=== PATIENT | male | born 1955 | race African-American/Black ===

== ENCOUNTER 2023-07-30 15:25 | Inpatient (IN) | payer MEDICARE, OTHER ==
[~2023-07-30] VITALS: Ht 175.3 cm; Wt 67.1 kg
[2023-07-30] MEDS ORDERED: MULT-213 PO (15:40)
[2023-07-30] MEDS ORDERED: [UNRECOGNIZED DRUG - CODE] PO (15:40)
[2023-07-30] MEDS ORDERED: RISP3TAB61 PO (15:40)
[2023-07-30] MEDS ORDERED: MAGN400O6 PO (15:40)
[2023-07-30] MEDS ORDERED: ASPI81TA31 PO (15:40)
[2023-07-30] MEDS ORDERED: FLUT1DIS27 IH (15:40)
[2023-07-30] MEDS ORDERED: POTA10CA43 PO (15:40)
[2023-07-30] MEDS ORDERED: BISA10SU61 RC (15:40)
[2023-07-30] MEDS ORDERED: ACET325C7 PO (15:40)
[2023-07-30] MEDS ORDERED: DIVA125C2 PO (15:40)
[2023-07-30 17:24] LABS: BASOPHILS # (AUTO) 0.1 K/UL (0.0-0.2); BASOPHILS % (AUTO) 0.9 % (0.0-2.0); DIFFERENTIAL COMMENT 0; EOSINOPHILS # (AUTO) 0.2 K/uL (0.0-0.7); EOSINOPHILS % (AUTO) 2.7 % (0.0-7.0); HEMATOCRIT 49.6 % (36.7-47.1); HEMOGLOBIN 16.2 g/dL (12.5-16.3); LYMPHOCYTES # (AUTO) 1.8 K/uL (0.8-4.8); LYMPHOCYTES % (AUTO) 26.2 % (20.5-51.5); MEAN CORPUSCULAR HEMOGLOBIN 32.3 uug (23.8-33.4); MEAN CORPUSCULAR HGB CONC 33 g/dL (32.5-36.3); MEAN CORPUSCULAR VOLUME 98.7 fL (73.0-96.2); MONOCYTES # (AUTO) 0.6 K/uL (0.1-1.30); MONOCYTES % (AUTO) 8.9 % (0.0-11.0); NEUTROPHILS # (AUTO) 4.1 K/uL (1.8-8.9); NEUTROPHILS % (AUTO) 61.3 % (38.5-71.5); PLATELET COUNT (AUTO) 177 K/uL (152-348); RED BLOOD CELL COUNT(AUTO) 5.03 MIL/uL (4.06-5.63); WHITE BLOOD COUNT (AUTO) 6.8 K/uL (3.6-10.2)
[2023-07-30 17:46] LABS: CALCIUM 9.3 mg/dL (8.5-10.1); CARBON DIOXIDE 34 mmol/L (21-32); CHLORIDE 102 mmol/L (98-107); CREATININE 0.8 mg/dL (0.6-1.3); GLUCOSE 88 mg/dL (74-106); POTASSIUM 4.8 mmol/L (3.5-5.1); SODIUM SERUM 138 mmol/L (136-145); UREA NITROGEN, BLOOD 17 mg/dL (7-18)
[2023-07-30 17:52] LABS: ALANINE AMINOTRANSFERASE 22 U/L (16-63); ALBUMIN 3.7 g/dL (3.4-5.0); ALKALINE PHOSPHATASE 69 U/L (50-136); ASPARTATE AMINOTRANSFERASE 18 U/L (15-37); BILIRUBIN,TOTAL 0.4 mg/dL (0.2-1.0); ETHANOL < 3 MG/DL (0-10); TOTAL PROTEIN, SERUM 7.6 g/dL (6.4-8.2)
[2023-07-30 18:00] LABS: ACETAMINOPHEN < 2.0 ug/mL (10-30)
[2023-07-30 18:12] LABS: *BILIRUBIN,URIN NEGATIVE (NEGATIVE); *BLOOD, URINE NEGATIVE (NEGATIVE); *CLARITY,URINE CLEAR (CLEAR); *COLOR,URINE YELLOW (YELLOW); *KETONES,URINE NEGATIVE (NEGATIVE); *PROTEIN,URINE NEGATIVE (NEGATIVE); *UROBILINOGEN,URINE 0.2 E.U./dl (NORMAL); LEUKOCYTE ESTERASE ,URINE NEGATIVE (NEGATIVE); NITRITE, URINE NEGATIVE (NEGATIVE); UGLUCOSE NEGATIVE (NEGATIVE)
[2023-07-30 18:42] LABS: *AMPHETAMINE, URINE NEGATIVE (NEGATIVE); *BARBITURATE, URINE NEGATIVE (NEGATIVE); *BENZODIAZEPINE, URINE NEGATIVE (NEGATIVE); *CANNABINOID, URINE NEGATIVE (NEGATIVE); *COCCAINE, URINE NEGATIVE (NEGATIVE); *OPIATE, URINE NEGATIVE (NEGATIVE); *PHENCYCLIDINE SCREEN,URINE NEGATIVE (NEGATIVE); FENTANYL, URINE NEGATIVE (NEGATIVE)
[2023-07-30] MEDS ORDERED: MAGNESIUM HYDROXIDE 30 ML LIQUID UDC PO PRN (22:45)
[2023-07-30] MEDS ORDERED: MAG HYDROX/AL HYDROX/SIMETH 30 ML LIQUID UDC PO PRN (22:45)
[2023-07-30] MEDS ORDERED: BLOOD SUGAR DIAGNOSTIC 1 EACH STRIP VI ONE (22:45)
[2023-07-30] MEDS ORDERED: ACETAMINOPHEN 325 MG TABLET PO PRN (22:45)
[2023-07-30] MEDS ORDERED: TEMAZEPAM 7.5 MG CAPSULE PO PRN (22:45)
[2023-07-30] MEDS ORDERED: LORAZEPAM 1 MG TABLET PO PRN (22:45)
[2023-07-31 07:30] VITALS: BP 109/67; TEMP 97.9
[2023-07-31] MEDS: NICOTINE 7 MG/24HR PATCH TD SCH (08:57)
[2023-07-31] MEDS: risperiDONE 1 MG TABLET PO SCH ×2 (08:57→16:43)
[2023-07-31] MEDS: DIVALPROEX SPRINKLE 125 MG CAP.SPRINK PO SCH ×3 (08:57→16:43)
[2023-07-31] MEDS ORDERED: risperiDONE 0.5 MG TABLET PO SCH (09:00)
[2023-07-31] MEDS ORDERED: MAGNESIUM HYDROXIDE 30 ML LIQUID UDC PO PRN (13:15)
[2023-07-31] MEDS ORDERED: Medication Not On Formulary EA (Acetaminophen (Tylenol) 650 MG) PO SCH (13:15)
[2023-07-31] MEDS ORDERED: BISACODYL 10 MG SUPP.RECT RC PRN (13:15)
[2023-07-31 16:00] VITALS: BP 110/72; TEMP 98; O2SAT 95
[2023-07-31] MEDS ORDERED: INSULIN REGULAR, HUMAN 300 UNITS/3 ML VIAL SQ PRN (16:15)
[2023-07-31] MEDS ORDERED: INSULIN REGULAR, HUMAN 300 UNIT/3 ML VIAL SQ PRN (16:15)
[2023-07-31] MEDS ORDERED: DEXTROSE 50% 50 ML DISP.SYRIN IV PRN (16:17)
[2023-07-31] MEDS: BLOOD SUGAR DIAGNOSTIC 1 EACH STRIP VI SCH ×2 (16:30→20:36)
[2023-07-31] MEDS ORDERED: FLUTICASONE/SALMETEROL 100/50 1 INH DISK.W.DEV IH SCH (21:00)
[2023-07-31 21:02] VITALS: BP 104/62; TEMP 98.4; O2SAT 90
[2023-08-01] MEDS: BLOOD SUGAR DIAGNOSTIC 1 EACH STRIP VI SCH ×4 (06:24→20:40)
[2023-08-01] MEDS: ASPIRIN 81 MG TAB.CHEW PO SCH (08:54)
[2023-08-01] MEDS: MULTIVIT, IRON, MIN NO. 8, FA TABLET PO SCH (08:55)
[2023-08-01] MEDS: risperiDONE 1 MG TABLET PO SCH ×2 (08:55→16:26)
[2023-08-01] MEDS: POTASSIUM CHLORIDE 10 MEQ TAB.PRT.SR PO SCH (08:55)
[2023-08-01] MEDS: DIVALPROEX SPRINKLE 125 MG CAP.SPRINK PO SCH ×3 (08:55→16:26)
[2023-08-01] MEDS: NICOTINE 7 MG/24HR PATCH TD SCH (08:56)
[2023-08-01] MEDS: GLUCERNA SHAKE 237 ML CAN PO SCH (08:56)
[2023-08-01] MEDS ORDERED: Medication Not On Formulary EA (Multivitamins W-Minerals (Multivitamin With Minerals) 1 PO SCH (09:00)
[2023-08-01] MEDS ORDERED: NIACIN 250 MG PO SCH (09:00)
[2023-08-01] MEDS: FLUTICASONE/VILANTEROL 1 EACH BLST.W.DEV INH SCH (09:00)
[2023-08-01 16:11] VITALS: BP 106/76; TEMP 98.3; O2SAT 93
[2023-08-01 19:55] VITALS: BP 112/75; TEMP 98; O2SAT 94
[2023-08-02] MEDS: BLOOD SUGAR DIAGNOSTIC 1 EACH STRIP VI SCH ×4 (06:42→21:00)
[2023-08-02] MEDS ORDERED: OLANZAPINE 10 MG VIAL IM ONE (07:30)
[2023-08-02 07:54] VITALS: BP 130/60; TEMP 98.4; O2SAT 99
[2023-08-02] MEDS: GLUCERNA SHAKE 237 ML CAN PO SCH (09:00)
[2023-08-02] MEDS: FLUTICASONE/VILANTEROL 1 EACH BLST.W.DEV INH SCH (09:00)
[2023-08-02] MEDS: MULTIVIT, IRON, MIN NO. 8, FA TABLET PO SCH (09:00)
[2023-08-02] MEDS: ASPIRIN 81 MG TAB.CHEW PO SCH (09:00)
[2023-08-02] MEDS: risperiDONE 1 MG TABLET PO SCH ×2 (09:00→17:00)
[2023-08-02] MEDS: NICOTINE 7 MG/24HR PATCH TD SCH (09:00)
[2023-08-02] MEDS: POTASSIUM CHLORIDE 10 MEQ TAB.PRT.SR PO SCH (09:00)
[2023-08-02] MEDS: DIVALPROEX SPRINKLE 125 MG CAP.SPRINK PO SCH ×3 (09:00→17:00)
[2023-08-02 16:21] VITALS: BP 101/69; TEMP 98.1; O2SAT 98
[2023-08-03 06:00] VITALS: BP 100/65; TEMP 99.3; O2SAT 92
[2023-08-03] MEDS: BLOOD SUGAR DIAGNOSTIC 1 EACH STRIP VI SCH ×4 (07:30→21:00)
[2023-08-03] MEDS: POTASSIUM CHLORIDE 10 MEQ TAB.PRT.SR PO SCH (08:02)
[2023-08-03] MEDS: MULTIVIT, IRON, MIN NO. 8, FA TABLET PO SCH (08:02)
[2023-08-03] MEDS: ASPIRIN 81 MG TAB.CHEW PO SCH (08:02)
[2023-08-03] MEDS: FLUTICASONE/VILANTEROL 1 EACH BLST.W.DEV INH SCH (08:02)
[2023-08-03] MEDS: NICOTINE 7 MG/24HR PATCH TD SCH (08:03)
[2023-08-03 08:13] VITALS: BP 104/77; TEMP 98.2; O2SAT 98
[2023-08-03] MEDS: DIVALPROEX SPRINKLE 125 MG CAP.SPRINK PO SCH ×3 (08:51→17:41)
[2023-08-03] MEDS: risperiDONE 1 MG TABLET PO SCH ×2 (08:52→10:00)
[2023-08-03] MEDS: GLUCERNA SHAKE 237 ML CAN PO SCH (08:52)
[2023-08-03 16:23] VITALS: BP 105/72; TEMP 98.1; O2SAT 98
[2023-08-04] MEDS: BLOOD SUGAR DIAGNOSTIC 1 EACH STRIP VI SCH ×4 (07:30→20:41)
[2023-08-04 08:00] VITALS: BP 123/86; TEMP 97.5; O2SAT 96
[2023-08-04] MEDS: risperiDONE 1 MG TABLET PO SCH ×2 (08:39→17:30)
[2023-08-04] MEDS: FLUTICASONE/VILANTEROL 1 EACH BLST.W.DEV INH SCH (09:00)
[2023-08-04] MEDS: ASPIRIN 81 MG TAB.CHEW PO SCH (09:00)
[2023-08-04] MEDS: GLUCERNA SHAKE 237 ML CAN PO SCH (09:00)
[2023-08-04] MEDS: POTASSIUM CHLORIDE 10 MEQ TAB.PRT.SR PO SCH (09:00)
[2023-08-04] MEDS: DIVALPROEX SPRINKLE 125 MG CAP.SPRINK PO SCH ×3 (09:00→17:00)
[2023-08-04 16:00] VITALS: BP 120/78; TEMP 97.7; O2SAT 93
[2023-08-05] MEDS: BLOOD SUGAR DIAGNOSTIC 1 EACH STRIP VI SCH ×4 (07:00→20:47)
[2023-08-05] MEDS: risperiDONE 1 MG TABLET PO SCH ×3 (08:45→16:35)
[2023-08-05 08:54] VITALS: BP 99/61; TEMP 98.2; O2SAT 98
[2023-08-05] MEDS: GLUCERNA SHAKE 237 ML CAN PO SCH (08:54)
[2023-08-05] MEDS: DIVALPROEX ER 500 MG TAB.SR.24H PO SCH ×2 (08:59→20:46)
[2023-08-05] MEDS: POTASSIUM CHLORIDE 10 MEQ TAB.PRT.SR PO SCH (09:00)
[2023-08-05] MEDS: FLUTICASONE/VILANTEROL 1 EACH BLST.W.DEV INH SCH (09:00)
[2023-08-05] MEDS: ASPIRIN 81 MG TAB.CHEW PO SCH (09:00)
[2023-08-05 15:39] VITALS: BP 100/66; TEMP 98; O2SAT 99
[2023-08-05 20:00] VITALS: BP 106/68; TEMP 98; O2SAT 90
[2023-08-06] MEDS: BLOOD SUGAR DIAGNOSTIC 1 EACH STRIP VI SCH ×4 (06:53→20:12)
[2023-08-06 08:00] VITALS: BP 140/89; TEMP 98.2; O2SAT 96
[2023-08-06] MEDS ORDERED: HALOPERIDOL LACTATE 5 MG/1 ML VIAL IM ONE (08:00)
[2023-08-06] MEDS ORDERED: diphenhydrAMINE 50 MG/1 ML VIAL IM ONE (08:00)
[2023-08-06] MEDS: GLUCERNA SHAKE 237 ML CAN PO SCH (09:00)
[2023-08-06] MEDS: ASPIRIN 81 MG TAB.CHEW PO SCH (09:00)
[2023-08-06] MEDS: risperiDONE 1 MG TABLET PO SCH ×2 (09:00→16:19)
[2023-08-06] MEDS: DIVALPROEX ER 500 MG TAB.SR.24H PO SCH ×2 (09:00→20:12)
[2023-08-06] MEDS: POTASSIUM CHLORIDE 10 MEQ TAB.PRT.SR PO SCH (09:00)
[2023-08-06] MEDS: FLUTICASONE/VILANTEROL 1 EACH BLST.W.DEV INH SCH (09:00)
[2023-08-06 15:33] VITALS: BP 130/91; TEMP 98.2; O2SAT 96
[2023-08-06 20:14] VITALS: BP 142/82; TEMP 98.1; O2SAT 95
[2023-08-07] MEDS: BLOOD SUGAR DIAGNOSTIC 1 EACH STRIP VI SCH ×4 (06:30→20:27)
[2023-08-07 08:07] VITALS: BP 138/90; TEMP 98.4; O2SAT 99
[2023-08-07] MEDS: ASPIRIN 81 MG TAB.CHEW PO SCH (08:29)
[2023-08-07] MEDS: FLUTICASONE/VILANTEROL 1 EACH BLST.W.DEV INH SCH (08:29)
[2023-08-07] MEDS: DIVALPROEX ER 500 MG TAB.SR.24H PO SCH (08:30)
[2023-08-07] MEDS: POTASSIUM CHLORIDE 10 MEQ TAB.PRT.SR PO SCH (08:31)
[2023-08-07] MEDS: risperiDONE 1 MG TABLET PO SCH (08:31)
[2023-08-07] MEDS: GLUCERNA SHAKE 237 ML CAN PO SCH (08:31)
[2023-08-07] MEDS ORDERED: HALOPERIDOL LACTATE 5 MG/1 ML VIAL IM PRN (14:30)
[2023-08-07 15:27] VITALS: BP 143/94; TEMP 98; O2SAT 94
[2023-08-07] MEDS: DIVALPROEX SPRINKLE 125 MG CAP.SPRINK PO SCH (17:56)
[2023-08-07] MEDS: BENZTROPINE MESYLATE 1 MG TABLET PO SCH (17:56)
[2023-08-07] MEDS: HALOPERIDOL 5 MG TABLET PO SCH (17:57)
[2023-08-07 20:11] VITALS: BP 122/84; TEMP 97.9; O2SAT 95
[2023-08-08] MEDS: BLOOD SUGAR DIAGNOSTIC 1 EACH STRIP VI SCH ×4 (06:57→21:00)
[2023-08-08 08:34] VITALS: BP 111/75; TEMP 98.2; O2SAT 99
[2023-08-08] MEDS: ASPIRIN 81 MG TAB.CHEW PO SCH (08:43)
[2023-08-08] MEDS: DIVALPROEX SPRINKLE 125 MG CAP.SPRINK PO SCH ×2 (08:43→16:49)
[2023-08-08] MEDS: HALOPERIDOL 5 MG TABLET PO SCH ×3 (08:43→16:50)
[2023-08-08] MEDS: BENZTROPINE MESYLATE 1 MG TABLET PO SCH ×2 (08:43→16:49)
[2023-08-08] MEDS: POTASSIUM CHLORIDE 20 MEQ POWDER PACKET PO SCH (08:44)
[2023-08-08] MEDS: GLUCERNA SHAKE 237 ML CAN PO SCH (08:44)
[2023-08-08] MEDS: FLUTICASONE/VILANTEROL 1 EACH BLST.W.DEV INH SCH (08:53)
[2023-08-08 15:43] VITALS: BP 95/63; TEMP 98; O2SAT 97
[2023-08-08 20:30] VITALS: BP 110/64; TEMP 98.1; O2SAT 98
[2023-08-09] MEDS: BLOOD SUGAR DIAGNOSTIC 1 EACH STRIP VI SCH ×5 (06:59→21:00)
[2023-08-09 07:20] LABS: CALCIUM 9.2 mg/dL (8.5-10.1); CREATININE 0.9 mg/dL (0.6-1.3)
[2023-08-09 07:45] VITALS: BP 103/69; TEMP 98.3; O2SAT 98
[2023-08-09] MEDS: DIVALPROEX SPRINKLE 125 MG CAP.SPRINK PO SCH ×2 (09:37→17:44)
[2023-08-09] MEDS: BENZTROPINE MESYLATE 1 MG TABLET PO SCH ×2 (09:37→17:44)
[2023-08-09] MEDS: HALOPERIDOL 5 MG TABLET PO SCH ×3 (09:37→17:44)
[2023-08-09] MEDS: ASPIRIN 81 MG TAB.CHEW PO SCH (09:37)
[2023-08-09] MEDS: POTASSIUM CHLORIDE 20 MEQ POWDER PACKET PO SCH (09:38)
[2023-08-09] MEDS: FLUTICASONE/VILANTEROL 1 EACH BLST.W.DEV INH SCH (09:38)
[2023-08-09] MEDS: GLUCERNA SHAKE 237 ML CAN PO SCH (09:40)
[2023-08-09 16:38] VITALS: BP 120/81; TEMP 98.1; O2SAT 98
[2023-08-09 20:00] VITALS: BP 110/67; O2SAT 91
[2023-08-10 07:58] VITALS: BP 120/93; TEMP 98; O2SAT 100
[2023-08-10] MEDS: BLOOD SUGAR DIAGNOSTIC 1 EACH STRIP VI SCH ×4 (08:00→21:00)
[2023-08-10] MEDS: HALOPERIDOL 5 MG TABLET PO SCH ×3 (08:47→21:18)
[2023-08-10] MEDS: DIVALPROEX SPRINKLE 125 MG CAP.SPRINK PO SCH ×2 (08:47→21:17)
[2023-08-10] MEDS: BENZTROPINE MESYLATE 1 MG TABLET PO SCH ×2 (08:53→21:18)
[2023-08-10] MEDS: GLUCERNA SHAKE 237 ML CAN PO SCH (08:53)
[2023-08-10] MEDS: FLUTICASONE/VILANTEROL 1 EACH BLST.W.DEV INH SCH (09:00)
[2023-08-10] MEDS: ASPIRIN 81 MG TAB.CHEW PO SCH (09:00)
[2023-08-10] MEDS: POTASSIUM CHLORIDE 20 MEQ POWDER PACKET PO SCH (09:00)
[2023-08-10 16:08] VITALS: BP 124/82; TEMP 98.3; O2SAT 100
[2023-08-10 20:00] VITALS: BP 108/68; O2SAT 91
[2023-08-11] MEDS: BLOOD SUGAR DIAGNOSTIC 1 EACH STRIP VI SCH ×2 (05:51→11:30)
[2023-08-11 08:05] VITALS: BP 126/85; TEMP 98.2; O2SAT 97
[2023-08-11] MEDS: HALOPERIDOL 5 MG TABLET PO SCH ×3 (08:44→20:28)
[2023-08-11] MEDS: DIVALPROEX SPRINKLE 125 MG CAP.SPRINK PO SCH ×2 (08:45→20:28)
[2023-08-11] MEDS: FLUTICASONE/VILANTEROL 1 EACH BLST.W.DEV INH SCH (08:45)
[2023-08-11] MEDS: BENZTROPINE MESYLATE 1 MG TABLET PO SCH ×2 (08:45→20:28)
[2023-08-11] MEDS: GLUCERNA SHAKE 237 ML CAN PO SCH (08:46)
[2023-08-11] MEDS: ASPIRIN 81 MG TAB.CHEW PO SCH (08:46)
[2023-08-11] MEDS: POTASSIUM CHLORIDE 20 MEQ POWDER PACKET PO SCH (08:46)
[2023-08-11] MEDS ORDERED: HALOPERIDOL DECANOATE 50 MG/1 ML AMPUL IM SCH (09:00)
[2023-08-11 16:20] VITALS: BP 94/58; TEMP 98.1; O2SAT 98
[2023-08-11 20:00] VITALS: BP 109/65; TEMP 98; O2SAT 93
[2023-08-12 08:05] VITALS: BP 141/80; TEMP 98.2; O2SAT 96
[2023-08-12] MEDS: HALOPERIDOL 5 MG TABLET PO SCH ×3 (08:40→20:53)
[2023-08-12] MEDS: ASPIRIN 81 MG TAB.CHEW PO SCH (08:40)
[2023-08-12] MEDS: BENZTROPINE MESYLATE 1 MG TABLET PO SCH ×2 (08:40→20:53)
[2023-08-12] MEDS: DIVALPROEX SPRINKLE 125 MG CAP.SPRINK PO SCH ×2 (08:43→20:53)
[2023-08-12] MEDS: POTASSIUM CHLORIDE 10 MEQ TAB.PRT.SR PO SCH (08:48)
[2023-08-12] MEDS: FLUTICASONE/VILANTEROL 1 EACH BLST.W.DEV INH SCH (08:48)
[2023-08-12] MEDS: GLUCERNA SHAKE 237 ML CAN PO SCH (08:49)
[2023-08-12 15:33] VITALS: BP 117/66; TEMP 97.8; O2SAT 93
[2023-08-12 20:00] VITALS: BP 124/67; TEMP 97.6; O2SAT 98
[2023-08-13 08:34] VITALS: BP 103/67; TEMP 98.2; O2SAT 98
[2023-08-13] MEDS: GLUCERNA SHAKE 237 ML CAN PO SCH (09:00)
[2023-08-13] MEDS: POTASSIUM CHLORIDE 10 MEQ TAB.PRT.SR PO SCH (09:28)
[2023-08-13] MEDS: DIVALPROEX SPRINKLE 125 MG CAP.SPRINK PO SCH ×3 (09:28→18:02)
[2023-08-13] MEDS: ASPIRIN 81 MG TAB.CHEW PO SCH (09:28)
[2023-08-13] MEDS: HALOPERIDOL 5 MG TABLET PO SCH ×4 (09:28→20:52)
[2023-08-13] MEDS: BENZTROPINE MESYLATE 1 MG TABLET PO SCH ×2 (09:28→20:52)
[2023-08-13] MEDS: FLUTICASONE/VILANTEROL 1 EACH BLST.W.DEV INH SCH (09:37)
[2023-08-13 15:40] VITALS: BP 111/65; TEMP 98; O2SAT 92
[2023-08-13 19:58] VITALS: BP 116/62; TEMP 98.1; O2SAT 95
[2023-08-14 07:49] VITALS: BP 103/67; TEMP 98.2; O2SAT 93
[2023-08-14] MEDS: GLUCERNA SHAKE 237 ML CAN PO SCH (09:00)
[2023-08-14] MEDS: ASPIRIN 81 MG TAB.CHEW PO SCH (09:40)
[2023-08-14] MEDS: DIVALPROEX SPRINKLE 125 MG CAP.SPRINK PO SCH ×3 (09:40→17:00)
[2023-08-14] MEDS: POTASSIUM CHLORIDE 10 MEQ TAB.PRT.SR PO SCH (09:40)
[2023-08-14] MEDS: HALOPERIDOL 5 MG TABLET PO SCH ×4 (09:41→20:13)
[2023-08-14] MEDS: BENZTROPINE MESYLATE 1 MG TABLET PO SCH ×2 (09:41→20:13)
[2023-08-14] MEDS: FLUTICASONE/VILANTEROL 1 EACH BLST.W.DEV INH SCH (09:42)
[2023-08-14 15:09] VITALS: BP 100/66; TEMP 98; O2SAT 92
[2023-08-14 20:05] VITALS: BP 111/64; TEMP 98; O2SAT 94
[2023-08-15] MEDS: POTASSIUM CHLORIDE 10 MEQ TAB.PRT.SR PO SCH (08:37)
[2023-08-15] MEDS: BENZTROPINE MESYLATE 1 MG TABLET PO SCH (08:37)
[2023-08-15] MEDS: ASPIRIN 81 MG TAB.CHEW PO SCH (08:37)
[2023-08-15] MEDS: HALOPERIDOL 5 MG TABLET PO SCH ×2 (08:37→12:54)
[2023-08-15] MEDS: DIVALPROEX SPRINKLE 125 MG CAP.SPRINK PO SCH ×2 (08:38→12:54)
[2023-08-15] MEDS: GLUCERNA SHAKE 237 ML CAN PO SCH (08:40)
[2023-08-15] MEDS: FLUTICASONE/VILANTEROL 1 EACH BLST.W.DEV INH SCH (08:40)
[2023-08-15 08:42] VITALS: BP 118/82; TEMP 98.4; O2SAT 96
[2023-08-15 09:35] LABS: CALCIUM 9.1 mg/dL (8.5-10.1); CREATININE 0.9 mg/dL (0.6-1.3); POTASSIUM 4.3 mmol/L (3.5-5.1)
== END 2023-08-15 14:05 | DRG 885 ==
LOC: ER 15:29 → GPS 20:46
PROVIDERS: ADMIT Psychiatry & Neurology Psychiatry; ATTEND Student in an Organized Health Care Education/Training Program
DX: F25.0 Schizoaffective disorder, bipolar type (principal); J44.9 Chronic obstructive pulmonary disease, unspecified; E11.9 Type 2 diabetes mellitus without complications; Z91.013 Allergy to seafood; M19.90 Unspecified osteoarthritis, unspecified site; F41.9 Anxiety disorder, unspecified; Z91.199 Patient's noncompliance with other medical treatment and regimen due to unspecified reason
CPT/HCPCS: 36415; 80164; 84443; 85025; A9150; G0480; J1200; J1630; J1631; J1815; J2358